=== PATIENT | female | born 1980 | race Two or more races ===

== ENCOUNTER 2024-01-31 10:48 | Emergency (ER) | payer OTHER ==
[~2024-01-31] VITALS: Ht 172.7 cm; Wt 88.5 kg
[~2024-01-31 10:48] MED LIST: PRENATAL TABLE1 EAC2 PO; SEROQUEL300 MG PO; WELLBUTRIN XL300 MG PO
[2024-01-31] MEDS ORDERED: QUETIAPINE FUM400 M1 PO (11:20)
[2024-01-31] MEDS ORDERED: ZOLOFT20 MG/1 ML PO (11:20)
[2024-01-31] MEDS ORDERED: TOPAMAX15 MG PO (11:20)
[2024-01-31] MEDS ORDERED: 0.9 % SODIUM CHLORIDE 1,000 ML IV ONE (11:45)
[2024-01-31] MEDS ORDERED: FAMOtidine 10 MG/ML (4ML VIAL) IV ONE (11:45)
[2024-01-31] MEDS ORDERED: ONDANSETRON HCL 2 MG/ML VIAL IV ONE (11:45)
[2024-01-31] MEDS ORDERED: KETOROLAC TROMETHAMINE 60 MG VIAL IM ONE (11:45)
[2024-01-31 12:25] LABS: PH,URINE 6.5 (5.0-8.0); URINE APPEARANCE Clear; URINE BILIRRUBIN Negative (NEGATIVE); URINE BLOOD Trace; URINE COLOR Yellow; URINE GLUCOSE Negative (NEGATIVE); URINE KETONE Negative (NEGATIVE); URINE LEUKOCYTE Trace; URINE NITRATE Negative; URINE PROTEIN Negative (NEGATIVE); URINE UROBILINOGEN 0.2 E.U./dl
[2024-01-31 12:25] LABS: HEMATOCRIT 39.2 % (36.0-45.00); HEMOGLOBIN 13.4 g/dL (12.0-15.00); PLATELET COUNT 277 K/uL (150-450); RED BLOOD COUNT 4.46 M/uL (4.00-6.00); RED CELL DISTRIBUTION WIDTH 13.2 % (11.5-14.5)
[2024-01-31 12:28] LABS: URINE BACTERIA 370.3 uL (0.0-1933); URINE EPITHELIAL CELLS 11.4 uL (0.0-38.8); URINE WBC 23.9 uL (0.0-23.2)
[2024-01-31 13:13] LABS: ALKALINE PHOSPHATASE 88 U/L (50-136); ALT/SGPT 40 U/L (12-78); AMYLASE 99 U/L (25-115); ANION GAP 7 (10.0-20.0); AST/SGOT 26 U/L (15-37); BILIRUBIN TOTAL 0.31 mg/dL (0.3-1.2); BLOOD UREA NITROGEN 19 mg/dL (7-18); BUN CREA RATIO 26 (7.0-25.0); CALCIUM 9.3 mg/dL (8.5-10.1); CARBON DIOXIDE 29 mEq/L (21-32); CHLORIDE 110 mmol/L (98-107); CREATININE SERUM 0.74 mg/dL (0.55-1.02); GFR 85.65; GLOBULINA 3.5 G/DL (2.4-3.5); GLUCOSE FASTING 100 mg/dL (65-100); LIPASE 35 U/L (13-75); OSMOLALITY SERUM 285 MOSM/KG (275-295); POTASSIUM 4.37 mEq/L (3.5-5.1); SODIUM 142 mmol/L (136-145); TOTAL PROTEIN 7.5 gm/dL (6.4-8.2)
[2024-01-31 13:16] LABS: INR < 0.93; PARTIAL THROMBOPLASTIN TIME 28.5 SECONDS (22.0-34.0); PROTHROMBIN TIME 10.2 SECONDS (9.0-11.5)
[2024-01-31 13:41] LABS: HCG QUANTITATIVE < 1 mUI/mL (1-3)
[2024-01-31] MEDS ORDERED: BACTRIM DS TAB1 EACH PO (15:27)
[2024-01-31] MEDS ORDERED: PEPCID AC20 MG PO (15:27)
== END 2024-01-31 15:42 | disposition home or self-care (01) ==
LOC: ER 10:50 → EDBD 10:50 → ER 11:57
PROVIDERS: General Practice
DX: N39.0 Urinary tract infection, site not specified (principal); Z87.09 Personal history of other diseases of the respiratory system; R07.89 Other chest pain